=== PATIENT | male | born 1950 | race Caucasian/White ===

== ENCOUNTER 2017-12-24 00:57 | Inpatient (IN) | payer OTHER ==
[~2017-12-24] VITALS: Ht 170.2 cm; Wt 107.0 kg
[2017-12-24] VITALS (7 sets, daily range): BP systolic 107–190; BP diastolic 59–104
[~2017-12-24 00:57] MED LIST: AMOXICILLIN875 MG PO; ASPIRIN325 PO; CLARITIN10 MG PO; CRESTOR10 MG PO; FLOXIN OTI0.3 %/5 M1 OT; Guaifenesin PO; LISINOPRIL10 MG PO; LOPRESSOR50 PO; PRILOSEC 20 MG20 MG PO; PROVENTIL HFA6.7 G1 INH; SINGULAIR 10 MG10 M1 PO
[2017-12-24 01:31] LABS: HEMATOCRIT 41.2 % (42.0-52.0); HEMOGLOBIN 13.8 gm/dL (14.0-18.0); MCH 29.8 pg (26.0-34.0); MCHC 33.4 g/dL (28.0-37.0); MCV 89.2 fL (80.0-100.0); NUCLEATED RBCS 0 /100WBC; PLATELET COUNT* 226 thou/uL (150-400); RBC 4.62 mil/uL (4.50-6.00); RDW-CV 14.1 % (10.5-14.5); WBC 11.8 thou/uL (4.0-11.0)
[2017-12-24 01:46] LABS: ANION GAP 6 mmol/L (7-16); BUN 5 mg/dL (7-18); CALCIUM 9.3 mg/dL (8.5-10.1); CHLORIDE 103 mmol/L (98-107); CO2 33 mmol/L (21-32); GLUCOSE 104 mg/dL (70-99); POTASSIUM 4.3 mmol/L (3.5-5.1); SODIUM 142 mmol/L (136-145)
[2017-12-24 01:53] LABS: ALBUMIN 3.8 g/dL (3.4-5.0); ALKALINE PHOSPHATASE 82 U/L (46-116); NT-PRO BRAIN NAT PEPTIDE 318 pg/mL (<300); SGOT 19 U/L (15-37); SGPT 26 U/L (30-65); TOTAL BILIRUBIN 0.5 mg/dL (<0.1-1.0); TOTAL PROTEIN 7.7 g/dL (6.4-8.2); TROPONIN-I LEVEL <0.06 ng/mL (<0.06)
[2017-12-24 01:57] LABS: INFLUENZA A ANTIGEN None Detected (None Detect); INFLUENZA B ANTIGEN None Detected (None Detect)
[2017-12-24 02:28] LABS: ABSOLUTE BASOPHILS 0.1 thou/uL (0.0-0.2); ABSOLUTE EOSINOPHILS 1.7 thou/uL (0.0-0.7); ABSOLUTE LYMPHOCYTES 1.4 thou/uL (0.8-5.3); ABSOLUTE MONOCYTES 0.9 thou/uL (0.0-1.2); ABSOLUTE NEUTROPHILS 7.7 thou/uL (1.6-8.1); PLATELET ESTIMATE ADEQUATE; TOXIC GRANULATION 1+
[2017-12-24 04:16] LABS: HCO3 30.7 mmol/L (22.0-26.0); pH 7.369 (7.340-7.450)
[2017-12-24 04:17] LABS: PCO2 54.5 mmHg (35.0-45.0)
--- NOTE | 2017-12-24 07:19 | NUR ---
RECEIVED REPORT FROM ER NURSE VIOLA AT 0450. PT ARRIVED TO UNIT AT 0510 VIA GURNEY. PT AAOX4, ORIENTED TO ROOM AND CALL LIGHT, ON 6L O2 VIA NC. DENIES PAIN, NO CONCERNS VOICED. CALL LIGHT WITHIN REACH.
--- NOTE | 2017-12-24 16:21 | NUR ---
CM ATTEMPTED TO SPEAK TO THE PATIENT TO DISCUSS HOME SITUATION AND DISCHARGE PLANNING NEEDS. PATIENT WITH RT RECIEVING BREATHING TREATMENT AT THIS TIME. CM WILL ATTEPMET TO SEE PATIENT AT A LATER TIME. CM WILL REMAIN AVAILABLE TO ASSIST AND FOLLOW NEEDED.
[2017-12-24] MEDS ORDERED: TUMS PO (17:22)
--- NOTE | 2017-12-24 17:22 | 2DMMODE ---
[place] [address] 2 D/M-MODE ECHOCARDIOGRAM Name: JOSE F WYMAN SR Room: [address] IN [facility]#: [id number] Admission: 12/24/17 Attend Phys: Radha Alfred Discharge: Date of : 46 Date of Service: 12/24/17 1722 Report #: [id number] THIS REPORT FOR: //name// APPROVED REPORT Study performed: 12/24/2017 15:09:50 EXAM: Comprehensive 2D, Doppler, and color-flow Echocardiogram Patient Location: In-Patient Room #: [facility] Status: routine BSA: 2.17 HR: 95 bpm BP: 164/73 mmHg Rhythm: NSR Other Information Study Quality: Good Indications Dyspnea 2D Dimensions LVEF(%): 61.81 (>50%) IVSd: 13.03 (7-11mm) LVOT Diam: 22.07 (18-24mm) LVDd: 37.53 mm PWd: 12.46 (7-11mm) Ascending Ao: 35.64 (22-36mm) LVDs: 25.29 (25-40mm) Aortic Root: 33.66 mm Ramirez's LVEF: 61.81 % Volumes Left Atrial Volume (Systole) LA ESV Index: 21.90 mL/m2 Aortic Valve AoV Peak Basil.: 3.27 m/s AO Peak Gr.: 42.75 mmHg LVOT Max P.74 mmHg AO Mean Gr.: 26.32 mmHg LVOT Mean P.21 mmHg LVOT Max V: 1.30 m/s AO V2 VTI: 59.83 cm LVOT Mean V: 0.98 m/s RADHA (VTI): 1.57 cm2 LVOT V1 VTI: 24.49 cm Mitral Valve E/A Ratio: 0.68 [place] [address] 2 D/M-MODE ECHOCARDIOGRAM Name: JOSE F WYMAN SR Room: [address] IN [facility]#: [id number] Admission: 12/24/17 Attend Phys: Radha Alfred Discharge: Date of : 46 Date of Service: 12/24/17 1722 Report #: [id number] MV Decel. Time: 206.74 ms MV E Max Basil.: 0.66 m/s MV PHT: 59.96 ms MVA (PHT): 3.67 cm2 Pulmonary Valve PV Peak Basil.: 1.47 m/s PV Peak Gr.: 8.68 mmHg Left Ventricle The left ventricle is normal size. There is normal LV segmental wall motion. Mild concentric left ventricular hypertrophy. Left ventricular function is vigorous. LVEF is >70%. Grade I - abnormal relaxation pattern. Right Ventricle The right ventricle is normal size. The right ventricular systolic function is normal. Atria Left atrium is mildly dilated. The right atrium size is normal. Aortic Valve The Aortic valve is sclerotic. No aortic regurgitation is present. Moderate aortic stenosis. Mitral Valve The mitral valve is normal in structure. Trace mitral regurgitation. No evidence of mitral valve stenosis. Tricuspid Valve The tricuspid valve is normal in structure. Trace tricuspid regurgitation. Pulmonic Valve The pulmonary valve is normal in structure. There is no pulmonic valvular regurgitation. Great Vessels The aortic root is normal in size. IVC is normal in size and collapses with >50% inspiration Pericardium There is no pericardial effusion. <Conclusion> [place] [address] 2 D/M-MODE ECHOCARDIOGRAM Name: JOSE F WYMAN SR Room: [address]#: [id number] Admission: 12/24/17 Attend Phys: Radha Alfred Discharge: Date of : 46 Date of Service: 12/24/17 1722 Report #: [id number] The left ventricle is normal size. Mild concentric left ventricular hypertrophy. Left ventricular function is vigorous. LVEF is >70%. Grade I - abnormal relaxation pattern. Left atrium is mildly dilated. The Aortic valve is sclerotic. Moderate aortic stenosis. Trace mitral regurgitation. Trace tricuspid regurgitation. <ELECTRONICALLY SIGNED> By: Jose F Zamarripa MD, FACC 12/24/171721 21 21 Jose F Zamarripa MD, FACC /INF
--- NOTE | 2017-12-24 17:22 | NUR ---
PT UP IN ROOM WITH STEADY GAIT. PT ON O2@4L NC. O2 SATS IN UPPER 90S. PT REPORTS SOA WITH EXERTION. SOA IMPROVED WITH BREATHING TREATMENTS. NSR/STACH ON MONITOR
--- NOTE | 2017-12-24 17:48 | EKG ---
[place] [address] ELECTROCARDIOGRAM REPORT Name: ALMA ROSA WYMAN SR Room: [address] ADM IN .R.#: [id number] Admission: 12/24/17 Attend Phys: Tim Zhang Discharge: Date of : 46 Report #: [id number] THIS REPORT FOR: //name// [facility] ED Test Date: 2017-12-24 Test Time: 01:08:56 Pat Name: ALMA ROSA JONTOM Department: Room: [facility] Gender: M Detention Deputy: WINSOME Hidalgo : 1950 Requested By: Crystal Leonard Order Number: [id number] MD: Maycol Alexandre Measurements Intervals [place] Rate: 79 P: 9 [place]: 170 QRS: -20 QRSD: 91 T: 27 QT: 370 QTc: 425 Interpretive Statements Sinus rhythm Supraventricular bigeminy Borderline left axis deviation Low voltage, extremity leads Compared to ECG 01/03/2014 13:03:24 Low QRS voltage now present Ventricular premature complex(es) no longer present Electronically Signed On 12-24-2017 17:48:13 CDT by Maycol Alexandre [email or web address] <ELECTRONICALLY SIGNED> By: Maycol Alexandre MD, [facility] 12/24/17 1748 7 7 Maycol Alexandre MD, [facility] /EPI
[2017-12-25] VITALS (9 sets, daily range): BP systolic 132–147; BP diastolic 60–74
--- NOTE | 2017-12-25 05:37 | NUR ---
ASSUMED CARE OF PT AT 1930, NURSING ASSESSMENT COMPLETED AT START OF SHIFT, PT VOICED NO CONCERNS, PT TRACING SINUS RHYTHM WTH PVCS, DENIES PAIN THIS SHIFT, HOURLY ROUNDING COMPLETED, CALL LIGHT WITHIN REACH.
--- NOTE | 2017-12-25 09:00 | NUR ---
VSS, ASSUMED CARE IN THE AM ASSESSMENT PERFORMED AND CHARTED, FALL PRECAUTIONS IN PLACE, PT IS A&O4 AND IS UP AD [place] AND DENIES ANY PAIN, PT GOAL IS TO IMPROVE BREATHING AND WALK THE UNIT, PT IS ON 2.5 L NC AND IS TRACING ST/ST/TYPE 2 ON THE MONITOR, WILL FOLLOW WITH PLAN OF CARE,
--- NOTE | 2017-12-25 18:38 | NUR ---
VSS, PT IS PROGRESSING TOWARDS GOAL, PT IS A&O4 AND UP AD [place] AND IS ON 2L NC AD IS TRACING TYPE 2 ON THE MONITOR, PT HAS BEEN WALKING THE UNIT AND IS SOMETIME AT BEDSIDE ON THE GROUND PT STAES IT HELPS IMPROVE BREATHING, PT GOAL IS TO D/C TO HOME SOON AND HIS BREATHING HAS IMPROVEED AND IS ON 2L NC, HOURLY ROUNDS COMPLETED AND WILL FOLLOW WITH PLAN OF CARE.
[2017-12-26 03:49] VITALS: BP 116/58
--- NOTE | 2017-12-26 03:50 | NUR ---
END SHIFT: PT RESTED WELL. NO COMPLAINTS. NO PAIN. REMAINS ON 2L NC. PT IS SLOW TO WEAN OFF THE O2, SATS WILL DROP AND PT WILL DEVELOP SOA ON O2 <2L. PRODUCTIVE COUGH STILL NOTED. SA VS. SR WITH PAC'S/PVC'S ON MONITOR. ASSESSMENT UNCHANGED, VSS. SAFETY PRECAUTIONS IN PLACE. CALL LIGHT IN REACH. PERFORMED HOURLY ROUNDING, WILL CONT TO MONITOR.
[2017-12-26 05:23] LABS: HEMATOCRIT 40.4 % (42.0-52.0); HEMOGLOBIN 13.2 gm/dL (14.0-18.0); MCH 29.4 pg (26.0-34.0); MCHC 32.7 g/dL (28.0-37.0); MCV 89.9 fL (80.0-100.0); MPV 9.7 fl. (7.2-11.1); RBC 4.49 mil/uL (4.50-6.00); RDW-CV 14.1 % (10.5-14.5); WBC 18.5 thou/uL (4.0-11.0)
[2017-12-26 06:35] LABS: CALCIUM 10.1 mg/dL (8.5-10.1); CREATININE 1.1 mg/dL (0.6-1.3); POTASSIUM 4.6 mmol/L (3.5-5.1)
[2017-12-26 08:00] VITALS: BP 119/55
[2017-12-26 12:16] VITALS: BP 121/61
[2017-12-26 15:23] VITALS: BP 120/59
--- NOTE | 2017-12-26 16:45 | NUR ---
ASSUMED CARE OF PATIENT AFTER TRANSFER OF CARE AT 1300. AGREE WITH PREVIOUS NURSES ASSESSMENT. PATIENT HAS REMAINED ALERT AND ORIENTED X4. VSS ON 2 LITERS 02 VIA NASAL CANULA. PATIENT IS SR WITH PAC/PVC ON THE MONITOR. PATIENT WALKS THE UNTI WITH PORTABLE 02 AND AMBULATES VERY WELL. NO COMPLAINTS OF NAUSEA OR PAIN THIS AFTERNOON. PATIENT IS COMFORTABLY ON KNEES AT THE SIDE OF THE BED, RESTING OVER THE BED, THIS HELPS HIM BREATHE MORE COMFORTABLY. CALL LIGHT IS WITHIN REACH AND PATIENT CALL APPROPRIATELY. HOURLY ROUNDS MAINTAINED. NURSING WILL CONTINUE TO MONITOR.
[2017-12-26 20:38] VITALS: BP 111/52
[2017-12-27] VITALS: BP 119/46
[2017-12-27 04:00] VITALS: BP 135/55
[2017-12-27 05:07] LABS: ABSOLUTE EOSINOPHILS 0.1 thou/uL (0.0-0.7); ABSOLUTE LYMPHOCYTES 2.7 thou/uL (0.8-5.3); ABSOLUTE MONOCYTES 1.7 thou/uL (0.0-1.2); ABSOLUTE NEUTROPHILS 10.7 thou/uL (1.6-8.1); BASOPHILS 0.1 %; EOSINOPHILS 0.5 %; HEMOGLOBIN 13.2 gm/dL (14.0-18.0); LYMPHOCYTES 17.6 %; MCH 29.2 pg (26.0-34.0); MCV 88.4 fL (80.0-100.0); MONOCYTES 11.1 %; MPV 9.3 fl. (7.2-11.1); NUCLEATED RBCS 0 /100WBC; PLATELET COUNT* 256 thou/uL (150-400); POLYS 70.7 %; RBC 4.52 mil/uL (4.50-6.00); RDW-CV 13.9 % (10.5-14.5); WBC 15.1 thou/uL (4.0-11.0)
--- NOTE | 2017-12-27 06:28 | NUR ---
PT IS ABLE TO COMMUNICATE HIS NEEDS TO STAFF EFFECTIVELY. HE HAS DENIED THE NEED FOR PAIN MEDICATION UP TO THIS TIME. PT HAS BEEN VERY STEADY WHEN AMBULATING UP TO THIS TIME.
[2017-12-27 06:44] LABS: ALBUMIN 3.3 g/dL (3.4-5.0); CALCIUM 9.3 mg/dL (8.5-10.1); CREATININE 1.2 mg/dL (0.6-1.3); POTASSIUM 3.6 mmol/L (3.5-5.1); TOTAL BILIRUBIN 0.3 mg/dL (<0.1-1.0); TOTAL PROTEIN 6.8 g/dL (6.4-8.2)
[2017-12-27 08:00] VITALS: BP 105/53
[2017-12-27 12:23] VITALS: BP 103/55
[2017-12-27 17:00] VITALS: BP 123/56
--- NOTE | 2017-12-27 18:35 | NUR ---
PATIET RESTING IN CHAIR IN ROOM. UP AD GARDENIA WITH SUPPLEMENTAL OXYGEN. VITAL SIGNS STABLE AND PATIENT IN NOAPPARENT SIGNS OF DISTRESS. NON PRODUCTIVE COUGH, DIMINISHED LUNG SOUNDS. HOURLY ROUNDING COMPLETED FOR PATIENT SAFETY AND PAITENT SLOWLY PROGRESSING TOWARDS GOALS. SR TO ST ON MONITOR.
[2017-12-27 20:00] VITALS: BP 108/53
[2017-12-28] VITALS: BP 120/62
--- NOTE | 2017-12-28 03:55 | NUR ---
ASSUMED CARE OF PT AT 1930, NURSING ASSESSMENT COMPLETED AT START OF SHIFT, PT VOICED NO CONCERNS, TRACING BIGEMINY/SINUS RHYTHM WITH PACS THIS SHIFT, PT DENIES PAIN, HOURLY ROUNDING COMPLETED, CALL LIGHT WITHIN REACH. PT SLOWLY PROGRESSING TOWARDS GOALS.
[2017-12-28 04:00] VITALS: BP 148/75
[2017-12-28 05:30] LABS: HEMATOCRIT 36.8 % (42.0-52.0); HEMOGLOBIN 12.4 gm/dL (14.0-18.0); MCH 30.2 pg (26.0-34.0); MCHC 33.7 g/dL (28.0-37.0); MCV 89.6 fL (80.0-100.0); MPV 9.7 fl. (7.2-11.1); NUCLEATED RBCS 0 /100WBC; PLATELET COUNT* 199 thou/uL (150-400); RBC 4.11 mil/uL (4.50-6.00); WBC 12.5 thou/uL (4.0-11.0)
[2017-12-28 05:43] LABS: CREATININE 1.1 mg/dL (0.6-1.3); POTASSIUM 3.8 mmol/L (3.5-5.1)
[2017-12-28 06:07] LABS: ABSOLUTE LYMPHOCYTES 1.9 thou/uL (0.8-5.3); ABSOLUTE MONOCYTES 1.1 thou/uL (0.0-1.2); ABSOLUTE NEUTROPHILS 9.5 thou/uL (1.6-8.1)
[2017-12-28 06:09] LABS: ANISOCYTOSIS 1+; PLATELET ESTIMATE ADEQUATE; POIKILOCYTOSIS 1+
[2017-12-28 08:00] VITALS: BP 110/66
[2017-12-28 11:37] VITALS: BP 136/67
--- NOTE | 2017-12-28 14:41 | NUR ---
Pt continues to require o2. Ex ox completed, Pt will need o2 at dc, anticipate dc tomorrow.
--- NOTE | 2017-12-28 18:42 | NUR ---
PATIENT RESTING IN ROOM. UP AD GARDENIA WITH SUPPLEMENTAL OXYGEN OF 2-4 LITERS. IV LASIX FOR ADDITIONAL DIURESIS TODAY WITH DISCHARGE ANTICIPATED FOR TOMORROW. VITAL SIGNS STABLE AND PATIETN LUNG SOUNDS CLEAR AND DIMINISHED. HOURLY ROUNDING COMPLETED FOR PATIENT SAFETY AND PATIENT PROGRESSING TOWARDS GOALS.
[2017-12-28 19:46] VITALS: BP 115/48
--- NOTE | 2017-12-29 03:57 | NUR ---
ASSUMED CARE OF PT AT 1930, NURSING ASSESSMENT COMPLETED AT START OF SHIFT. PT DENIES PAIN, TRACING SR WITH PACS THIS SHIFT. ONGOING SLEEP STUDY THIS SHIFT, PT AWAKE THROUGHOUT THE NIGHT, CALL LIGHT WITHIN REACH. PT ON 2L NC AT THIS TIME
[2017-12-29 07:09] LABS: HEMATOCRIT 37.8 % (42.0-52.0); HEMOGLOBIN 12.8 gm/dL (14.0-18.0); MCH 29.9 pg (26.0-34.0); MCHC 33.7 g/dL (28.0-37.0); MCV 88.6 fL (80.0-100.0); MPV 8.7 fl. (7.2-11.1); RBC 4.27 mil/uL (4.50-6.00); RDW-CV 13.9 % (10.5-14.5); WBC 14.5 thou/uL (4.0-11.0)
[2017-12-29 07:28] LABS: POTASSIUM 3.9 mmol/L (3.5-5.1)
[2017-12-29 08:00] VITALS: BP 113/71
[2017-12-29] MEDS ORDERED: LEVAQUIN 750 M750 MG PO (10:00)
[2017-12-29] MEDS ORDERED: PREDNISONE 20 M20 M1 PO (10:02)
[2017-12-29 10:38] VITALS: BP 113/71
[2017-12-29 10:41] VITALS: BP 113/71
--- NOTE | 2017-12-29 10:48 | NUR ---
Pt discharging to home today. Argelia Rodgers delivered portable tank to Pt's room.
--- NOTE | 2017-12-29 11:41 | NUR ---
ORDER RECEIVED TO DISCHARGE PATIENT HOME TO SELF CARE. ORDER RECEIVED FOR SUPLEMENTAL OXYGEN FOR HOME USE AND PORTABLE SUPPLY DELIVERED TO HOSPITAL FOR PATIETN USE. MED REC, MECAITION EDUCATION, NEW PRESCRIPTION, AND NEED FOR FOLLOW UP APPOINTMETNS COVERED AND STATED UNDERSTOOD BY PATIENT. HOURLY ROUNDING COMPLETED FOR PATIENT SAFETY AND PATINET HAS PROGRESSED TOWARDS GOALS. IV REMOVED AND TELEMTRY DC'D. PAITNET AWAITING TRANSPORTATION TO HOME
[2018-01-11] MEDS ORDERED: LIPITOR80 MG PO (10:13)
[2018-01-11] MEDS ORDERED: FLONASE 0.05%50 MCG NASAL (10:15)
[2018-01-11] MEDS ORDERED: ALLFEN400 MG PO (10:16)
[2018-01-11] MEDS ORDERED: LISINOPRIL20 MG PO (10:18)
[2018-01-11] MEDS ORDERED: CLARITIN10 MG PO (10:18)
[2018-01-11] MEDS ORDERED: IPRATROPIUM BRO30 ML NASAL (10:18)
[2018-01-11] MEDS ORDERED: ASMANEX220 MC2 INH (10:19)
[2018-01-11] MEDS ORDERED: NAPROSYN500 MG PO (10:19)
[2018-01-12] MEDS ORDERED: UNICOMPLEX M TA1 TA1 PO (15:30)
[2018-01-12] MEDS ORDERED: CINNAMON ALPHA1 EACH PO (15:30)
[2018-01-13] MEDS ORDERED: ASPIR 8181 M1 PO (12:22)
[2018-01-13] MEDS ORDERED: BRILINTA90 MG PO (12:40)
== END 2017-12-29 13:20 | disposition home or self-care (01) | DRG 193 ==
LOC: M.ERS 00:57 → M.TBA-ER 03:56 → M.2W 03:56
PROVIDERS: Emergency Medicine; Internal Medicine; ADMIT Internal Medicine
DX: J18.9 Pneumonia, unspecified organism (principal); J96.01 Acute respiratory failure with hypoxia; J45.901 Unspecified asthma with (acute) exacerbation; R65.10 Systemic inflammatory response syndrome (SIRS) of non-infectious origin without acute organ dysfunction; J44.1 Chronic obstructive pulmonary disease with (acute) exacerbation; J44.0 Chronic obstructive pulmonary disease with (acute) lower respiratory infection; I35.0 Nonrheumatic aortic (valve) stenosis; I10 Essential (primary) hypertension; E78.00 Pure hypercholesterolemia, unspecified; G47.33 Obstructive sleep apnea (adult) (pediatric); I25.10 Atherosclerotic heart disease of native coronary artery without angina pectoris; E78.5 Hyperlipidemia, unspecified; Z79.899 Other long term (current) drug therapy

== ENCOUNTER → 2018-05-17 | Outpatient (CLI) | payer OTHER ==
[~2018-05-17] MED LIST changes: +ALLFEN400 MG PO; +ASMANEX220 MC2 INH; +ASPIR 8181 M1 PO; +BRILINTA90 MG PO; +CINNAMON ALPHA1 EACH PO; +FLONASE 0.05%50 MCG NASAL; +IPRATROPIUM BRO30 ML NASAL; +LEVAQUIN 750 M750 MG PO; +LIPITOR80 MG PO; +LISINOPRIL20 MG PO; +NAPROSYN500 MG PO; +PREDNISONE 20 M20 M1 PO; +TUMS PO; +UNICOMPLEX M TA1 TA1 PO
--- NOTE | 2018-05-17 16:50 | 2DMMODE ---
[place] [address] 2 D/M-MODE ECHOCARDIOGRAM Name: JOSE F WYMAN Room: [facility]#: [id number] Admission: 05/17/18 Attend Phys: Tim Booker Discharge: Date of : 46 Date of Service: 05/17/18 1649 Report #: [id number] THIS REPORT FOR: //name// APPROVED REPORT Study performed: 05/17/2018 14:40:25 EXAM: Comprehensive 2D, Doppler, and color-flow Echocardiogram Patient Location: Out-Patient Status: routine BSA: 2.20 HR: 61 bpm BP: 164/73 mmHg Other Information Study Quality: Limited Technically limited study due to poor endocardial definition. Indications CAD Hypertension/HDD 2D Dimensions LVEF(%): 67.87 (>50%) IVSd: 14.64 (7-11mm) LVOT Diam: 20.14 (18-24mm) LVDd: 53.34 mm PWd: 14.23 (7-11mm) Ascending Ao: 32.88 (22-36mm) LVDs: 33.00 (25-40mm) Aortic Root: 30.64 mm Ramirez's LVEF: 67.87 % Volumes Left Atrial Volume (Systole) LA ESV Index: 19.80 mL/m2 Aortic Valve AoV Peak Basil.: 2.54 m/s AO Peak Gr.: 25.85 mmHg LVOT Max P.17 mmHg AO Mean Gr.: 16.39 mmHg LVOT Mean P.20 mmHg LVOT Max V: 0.74 m/s AO V2 VTI: 61.49 cm LVOT Mean V: 0.51 m/s RADHA (VTI): 0.96 cm2 LVOT V1 VTI: 18.54 [place] [address] 2 D/M-MODE ECHOCARDIOGRAM Name: JOSE F WYMAN Room: [facility]#: [id number] Admission: 05/17/18 Attend Phys: Tim Booker Discharge: Date of : 46 Date of Service: 05/17/18 1649 Report #: [id number] Mitral Valve E/A Ratio: 0.95 MV Decel. Time: 190.62 ms MV E Max Basil.: 0.77 m/s MV PHT: 55.28 ms MVA (PHT): 3.98 cm2 TDI E/Lateral E': 8.56 E/Medial E': 11.00 Medial E' Basil.: 0.07 m/s Lateral E' Basil.: 0.09 m/s Pulmonary Valve PV Peak Basil.: 1.00 m/s PV Peak Gr.: 4.02 mmHg Tricuspid Valve RAP Estimate: 5.00 mmHg TR Peak Gr.: 24.30 mmHg RVSP: 29.30 mmHg PA Pressure: 29.30 mmHg Left Ventricle The left ventricle is normal size. There is normal LV segmental wall motion. Mild concentric left ventricular hypertrophy. Left ventricular systolic function is normal. LVEF is 50-55%. Grade I - abnormal relaxation pattern. Right Ventricle The right ventricle is normal size. The right ventricular systolic function is normal. Atria The left atrium size is normal. The right atrium size is normal. Aortic Valve Aortic valve is calcified. Trace aortic regurgitation. Moderate to severe aortic stenosis. Mitral Valve The mitral valve is normal in structure. Mild mitral regurgitation. No evidence of mitral valve stenosis. Tricuspid Valve The tricuspid valve is normal in structure. Mild tricuspid regurgitation. The RVSP is 30-35 [place] [address] 2 D/M-MODE ECHOCARDIOGRAM Name: JOSE F WYMAN Room: [facility]#: [id number] Admission: 05/17/18 Attend Phys: Tim Booker Discharge: Date of : 46 Date of Service: 05/17/18 1649 Report #: [id number] Pulmonic Valve The pulmonary valve is normal in structure. There is no pulmonic valvular regurgitation. Great Vessels The aortic root is normal in size. IVC is not well visualized. Pericardium There is no pericardial effusion. <Conclusion> The left ventricle is normal size. Mild concentric left ventricular hypertrophy. Left ventricular systolic function is normal. LVEF is 50-55%. Grade I - abnormal relaxation pattern. Aortic valve is calcified. Moderate to severe aortic stenosis. Mild mitral regurgitation. Mild tricuspid regurgitation. The RVSP is 30-35 mmHg. <ELECTRONICALLY SIGNED> By: Jose F Zamarripa MD, FACC 05/17/189 48 48 Jose F Zamarripa MD, FACC /INF
== END ==
LOC: M.CRD 14:00
DX: I25.810 Atherosclerosis of coronary artery bypass graft(s) without angina pectoris (principal); I08.3 Combined rheumatic disorders of mitral, aortic and tricuspid valves; I10 Essential (primary) hypertension; Z95.1 Presence of aortocoronary bypass graft

== ENCOUNTER 2019-03-27 13:49 | Emergency (ER) | payer OTHER ==
[~2019-03-27] VITALS: Ht 170.2 cm; Wt 113.4 kg
[2019-03-27] MEDS ORDERED: PLAVIX 75 MG TA75 M1 PO (14:03)
[2019-03-27] MEDS ORDERED: ZPAK PO (14:08)
[2019-03-27] MEDS ORDERED: PREDNISONE 20 M20 M1 PO (14:08)
== END 2019-03-27 14:20 | disposition home or self-care (01) ==
LOC: M.ERS 13:49
DX: J45.901 Unspecified asthma with (acute) exacerbation (principal); E78.00 Pure hypercholesterolemia, unspecified; I10 Essential (primary) hypertension; J45.909 Unspecified asthma, uncomplicated; Z88.6 Allergy status to analgesic agent

== ENCOUNTER 2019-07-13 13:13 | Emergency (ER) | payer OTHER ==
[~2019-07-13] VITALS: Ht 170.2 cm; Wt 106.6 kg
[~2019-07-13 13:13] MED LIST changes: +PLAVIX 75 MG TA75 M1 PO; +ZPAK PO
[2019-07-13] MEDS ORDERED: BRILINTA90 MG PO (13:27)
[2019-07-13] MEDS ORDERED: ASA81BEC PO (13:27)
[2019-07-13] MEDS ORDERED: ZPAK PO (13:37)
[2019-07-13] MEDS ORDERED: PREDNISONE 20 M20 MG PO (13:40)
[2019-07-13 13:50] VITALS: BP 146/68
== END 2019-07-13 13:54 | disposition home or self-care (01) ==
LOC: M.ERS 13:13
DX: J20.9 Acute bronchitis, unspecified (principal); I10 Essential (primary) hypertension; E78.00 Pure hypercholesterolemia, unspecified; J45.909 Unspecified asthma, uncomplicated; Z95.2 Presence of prosthetic heart valve; Z88.6 Allergy status to analgesic agent

== ENCOUNTER 2019-08-24 14:51 | Emergency (ER) | payer OTHER ==
[~2019-08-24] VITALS: Ht 170.2 cm; Wt 106.6 kg
[~2019-08-24 14:51] MED LIST changes: +ASA81BEC PO; +PREDNISONE 20 M20 MG PO
[2019-08-24] MEDS ORDERED: ZESTRIL10 MG PO (15:03)
[2019-08-24] MEDS ORDERED: TYLENOL WITH CO1 TA1 PO (16:42)
[2019-08-24 16:45] VITALS: BP 124/77
== END 2019-08-24 16:45 | disposition home or self-care (01) ==
LOC: M.ERS 14:51
DX: M25.561 Pain in right knee (principal); M25.461 Effusion, right knee; I10 Essential (primary) hypertension; E78.00 Pure hypercholesterolemia, unspecified; J45.909 Unspecified asthma, uncomplicated; Z95.5 Presence of coronary angioplasty implant and graft; Z98.52 Vasectomy status; Z88.6 Allergy status to analgesic agent

== ENCOUNTER → 2019-10-11 | Outpatient (CLI) | payer OTHER ==
[~2019-10-11] MED LIST changes: +TYLENOL WITH CO1 TA1 PO; +ZESTRIL10 MG PO
--- NOTE | 2019-10-11 15:06 | 2DMMODE ---
[place] [address] 2 D/M-MODE ECHOCARDIOGRAM Name: ALMA ROSA WYMAN Room: [facility]#: [id number] Admission: 10/11/19 Attend Phys: Tim Booker Discharge: Date of : 46 Date of Service: 10/11/19 1506 Report #: [id number] THIS REPORT FOR: cc: Celena Warren PA-C, Erin PA-C Blick, David [facility] ~ THIS REPORT FOR: //name// APPROVED REPORT Study performed: 10/11/2019 12:59:06 EXAM: Comprehensive 2D, Doppler, and color-flow Echocardiogram Patient Location: Out-Patient BSA: 2.17 HR: 76 bpm BP: 160/70 mmHg Other Information Study Quality: Fair Indications Aortic Valve Disease CAD 2D Dimensions IVSd: 11.77 (7-11mm) LVOT Diam: 20.33 (18-24mm) LVDd: 50.19 mm PWd: 11.48 (7-11mm) Ascending Ao: 31.30 (22-36mm) LVDs: 33.87 (25-40mm) Aortic Root: 29.85 mm Volumes Left Atrial Volume (Systole) LA ESV Index: 27.00 mL/m2 Aortic Valve AoV Peak Basil.: 2.66 m/s AO Peak Gr.: 28.40 mmHg LVOT Max P.27 mmHg AO Mean Gr.: 17.32 mmHg LVOT Mean P.86 mmHg LVOT Max V: 0.90 m/s AO V2 VTI: 60.24 cm LVOT Mean V: 0.64 m/s RADHA (VTI): 1.23 cm2 LVOT V1 VTI: 22.86 [place] [address] 2 D/M-MODE ECHOCARDIOGRAM Name: ALMA ROSA WYMAN Room: [facility]#: [id number] Admission: 10/11/19 Attend Phys: Tim Booker Discharge: Date of : 46 Date of Service: 10/11/19 1506 Report #: [id number] Mitral Valve E/A Ratio: 0.83 MV Decel. Time: 203.05 ms MV E Max Basil.: 0.77 m/s MV PHT: 58.88 ms MVA (PHT): 3.74 cm2 TDI E/Lateral E': 9.63 E/Medial E': 8.56 Medial E' Basil.: 0.09 m/s Lateral E' Basil.: 0.08 m/s Pulmonary Valve PV Peak Basil.: 0.98 m/s PV Peak Gr.: 3.85 mmHg Tricuspid Valve RAP Estimate: 5.00 mmHg TR Peak Gr.: 14.73 mmHg RVSP: 19.73 mmHg PA Pressure: 19.73 mmHg Left Ventricle The left ventricle is normal size. There is normal LV segmental wall motion. Mild concentric left ventricular hypertrophy. Left ventricular systolic function is normal. The left ventricular ejection fraction is within the normal range. LVEF is 55-60%. Grade I - abnormal relaxation pattern. Right Ventricle The right ventricle is normal size. The right ventricular systolic function is normal. Atria The left atrium size is normal. The right atrium size is normal. Aortic Valve Aortic valve is mildly calcified. trace aortic regurgitation. Mild aortic stenosis. Mitral Valve The mitral valve is normal in structure. Mild mitral regurgitation. No evidence of mitral valve stenosis. Tricuspid Valve The tricuspid valve is normal in [place] [address] 2 D/M-MODE ECHOCARDIOGRAM Name: ALMA ROSA WYMAN Room: [facility]#: [id number] Admission: 10/11/19 Attend Phys: Tim Booker Discharge: Date of : 46 Date of Service: 10/11/19 1506 Report #: [id number] regurgitation. Pulmonic Valve Pulmonic valve is not well visualized. There is no pulmonic valvular regurgitation. Great Vessels The aortic root is normal in size. IVC is normal in size and collapses >50% with inspiration. Pericardium There is no pericardial effusion. <Conclusion> LVEF is 55-60%. Mild concentric left ventricular hypertrophy. Mild aortic stenosis. Mild mitral regurgitation. <ELECTRONICALLY SIGNED> By: Gabriele Carson MD, FACC 10/11/19 1506 1506 1506 Gabriele Carson MD, FAC /INF
== END ==
LOC: M.CRD 13:00
DX: I08.0 Rheumatic disorders of both mitral and aortic valves (principal)

== ENCOUNTER 2020-05-01 23:55 | Emergency (ER) | payer OTHER ==
[~2020-05-01] VITALS: Ht 170.2 cm; Wt 109.8 kg
[2020-05-02] MEDS ORDERED: IPRAT-ALBUT 0.5-3 ML INH (02:48)
[2020-05-02 03:00] VITALS: BP 138/79
== END 2020-05-02 03:00 | disposition home or self-care (01) ==
LOC: M.ERS 23:55
DX: J45.901 Unspecified asthma with (acute) exacerbation (principal); I10 Essential (primary) hypertension; E78.00 Pure hypercholesterolemia, unspecified; Z95.5 Presence of coronary angioplasty implant and graft; Z88.6 Allergy status to analgesic agent

== ENCOUNTER 2020-06-18 03:04 | Emergency (ER) | payer OTHER ==
[~2020-06-18] VITALS: Ht 170.2 cm; Wt 109.8 kg
[~2020-06-18 03:04] MED LIST changes: +IPRAT-ALBUT 0.5-3 ML INH
[2020-06-18 04:15] LABS: HEMATOCRIT 39.1 % (42.0-52.0); HEMOGLOBIN 13.6 gm/dL (14.0-18.0); MCH 29.8 pg (26.0-34.0); MCHC 34.6 g/dL (28.0-37.0); MPV 8.3 fl. (7.2-11.1); NUCLEATED RBCS 0 /100WBC; PLATELET COUNT* 250 thou/uL (150-400); RBC 4.55 mil/uL (4.50-6.00); RDW-CV 14.2 % (10.5-14.5); WBC 9.2 thou/uL (4.0-11.0)
[2020-06-18 04:31] LABS: CALCIUM 9.1 mg/dL (8.5-10.1); CREATININE 1.1 mg/dL (0.6-1.3); POTASSIUM 4.2 mmol/L (3.5-5.1)
[2020-06-18 04:37] LABS: PROTIME 10.5 Seconds (9.20-11.50)
[2020-06-18 04:46] LABS: ALBUMIN 4.1 g/dL (3.4-5.0); MAGNESIUM 1.9 mg/dL (1.8-2.4); TOTAL BILIRUBIN 0.5 mg/dL (<0.1-1.0); TOTAL PROTEIN 7.7 g/dL (6.4-8.2)
[2020-06-18] MEDS ORDERED: prednisone PO (05:01)
[2020-06-18 05:10] VITALS: BP 168/70
[2020-06-18 05:25] LABS: ABSOLUTE BASOPHILS 0.2 thou/uL (0.0-0.2); ABSOLUTE EOSINOPHILS 0.9 thou/uL (0.0-0.7); ABSOLUTE LYMPHOCYTES 1.7 thou/uL (0.8-5.3); ABSOLUTE NEUTROPHILS 5.3 thou/uL (1.6-8.1); ANISOCYTOSIS 1+; PLATELET ESTIMATE ADEQUATE; POIKILOCYTOSIS 1+
--- NOTE | 2020-06-18 18:28 | EKG ---
[place] [address] ELECTROCARDIOGRAM REPORT Name: JOSE F WYMAN Room: [facility]#: [id number] Admission: 06/18/20 Attend Phys: Discharge: 06/18/20 Date of : 46 Date of Service: 06/18/20 033 Report #: [id number] THIS REPORT FOR: //name// [facility] ED Test Date: 2020-06-18 Test Time: 03:32:24 Pat Name: JOSE F WYMAN Department: Room: Gender: Sensor Specialist: : 1950 Requested By: Crystal Leonard Order Number: [id number] MD: Jose F Zamarripa Measurements Intervals [place] Rate: 89 P: 3 NE: 179 QRS: -12 QRSD: 109 T: 34 QT: 337 QTc: 410 Interpretive Statements Sinus rhythm Supraventricular bigeminy Low voltage, extremity leads Compared to ECG 01/13/2018 03:16:59 No significant changes Electronically Signed On 06-18-2020 18:28:16 CDT by Jose F Zamarripa [email or web address] <ELECTRONICALLY SIGNED> By: Jose F Zamarripa MD, FACC 06/18/20 1828 0332 0332 Jose F Zamarripa MD, FACC /EPI
== END 2020-06-18 05:12 | disposition home or self-care (01) ==
LOC: M.ERS 03:04
PROVIDERS: Emergency Medicine
DX: J44.1 Chronic obstructive pulmonary disease with (acute) exacerbation (principal); Z20.828 Contact with and (suspected) exposure to other viral communicable diseases; R06.00 Dyspnea, unspecified; I10 Essential (primary) hypertension; E78.00 Pure hypercholesterolemia, unspecified; J45.909 Unspecified asthma, uncomplicated; Z79.899 Other long term (current) drug therapy; Z79.82 Long term (current) use of aspirin; Z88.6 Allergy status to analgesic agent

== ENCOUNTER 2020-07-17 20:37 | Emergency (ER) | payer OTHER ==
[~2020-07-17] VITALS: Ht 170.2 cm; Wt 105.2 kg
[~2020-07-17 20:37] MED LIST changes: +prednisone PO
[2020-07-17 21:20] LABS: HEMOGLOBIN 12.5 gm/dL (14.0-18.0); MCH 29.7 pg (26.0-34.0); MCHC 33.8 g/dL (28.0-37.0); MCV 87.7 fL (80.0-100.0); MPV 8.6 fl. (7.2-11.1); NUCLEATED RBCS 0 /100WBC; PLATELET COUNT* 207 thou/uL (150-400); RBC 4.22 mil/uL (4.50-6.00); RDW-CV 14.1 % (10.5-14.5); WBC 7.5 thou/uL (4.0-11.0)
[2020-07-17 21:24] LABS: CALCIUM 8.7 mg/dL (8.5-10.1); CREATININE 0.9 mg/dL (0.6-1.3); POTASSIUM 3.8 mmol/L (3.5-5.1)
[2020-07-17 21:25] LABS: INFLUENZA A ANTIGEN Negative (Negative); INFLUENZA B ANTIGEN Negative (Negative)
[2020-07-17 21:30] LABS: APTT 25.2 Seconds (25.0-31.3); PROTIME 10.4 Seconds (9.20-11.50)
[2020-07-17 21:35] LABS: ALBUMIN 3.6 g/dL (3.4-5.0); MAGNESIUM 1.9 mg/dL (1.8-2.4); TOTAL BILIRUBIN 0.3 mg/dL (<0.1-1.0)
[2020-07-17] MEDS ORDERED: PREDNISONE 10 M10 MG PO (22:48)
[2020-07-17 23:26] VITALS: BP 164/74
[2020-07-17 23:36] LABS: ABSOLUTE BASOPHILS 0.2 thou/uL (0.0-0.2); ABSOLUTE EOSINOPHILS 1.2 thou/uL (0.0-0.7); ABSOLUTE MONOCYTES 0.7 thou/uL (0.0-1.2); ABSOLUTE NEUTROPHILS 3.5 thou/uL (1.6-8.1); PLATELET ESTIMATE ADEQUATE
--- NOTE | 2020-07-18 10:51 | EKG ---
[place] [address] ELECTROCARDIOGRAM REPORT Name: ALMA ROSA WYMAN Room: [facility]#: [id number] Admission: 07/17/20 Attend Phys: Discharge: 07/17/20 Date of : 46 Date of Service: 07/17/202045 Report #: [id number] THIS REPORT FOR: //name// [facility] ED Test Date: 2020-07-17 Test Time: 20:46:31 Pat Name: ALMA ROSA WYMAN Department: Room: Gender: Electrotype Molder: : 1950 Requested By: Parul Moreno Order Number: [id number] MD: Maycol Alexandre Measurements Intervals [place] Rate: 94 P: 8 [place]: 161 QRS: -1 QRSD: 108 T: 32 QT: 354 QTc: 443 Interpretive Statements Sinus rhythm Supraventricular bigeminy Low voltage, extremity and precordial leads Consider anterior infarct Baseline wander in lead(s) I,aVR,V1 Compared to ECG 06/18/2020 03:32:24 Delayed R wave progression over the right precordium persists Electronically Signed On 07-18-2020 10:50:50 RESPIRATORY CLINICIAN by Maycol Alexandre [email or web address] <ELECTRONICALLY SIGNED> By: Maycol Alexandre MD, FACC 07/18/20 1050 45 45 Maycol Alexandre MD, FAC /EPI
== END 2020-07-17 23:27 | disposition home or self-care (01) ==
LOC: M.ERS 20:37
PROVIDERS: Nurse Practitioner Family
DX: J44.1 Chronic obstructive pulmonary disease with (acute) exacerbation (principal); Z20.828 Contact with and (suspected) exposure to other viral communicable diseases; I10 Essential (primary) hypertension; E78.00 Pure hypercholesterolemia, unspecified; J45.909 Unspecified asthma, uncomplicated; Z95.5 Presence of coronary angioplasty implant and graft; Z88.6 Allergy status to analgesic agent

== ENCOUNTER 2020-09-26 03:38 | Emergency (ER) | payer OTHER ==
[~2020-09-26] VITALS: Ht 170.2 cm; Wt 111.6 kg
[~2020-09-26 03:38] MED LIST changes: +PREDNISONE 10 M10 MG PO
[2020-09-26 04:13] LABS: HEMATOCRIT 37.6 % (42.0-52.0); HEMOGLOBIN 12.8 gm/dL (14.0-18.0); MCV 85.3 fL (80.0-100.0); MPV 8.2 fl. (7.2-11.1); NUCLEATED RBCS 0 /100WBC; PLATELET COUNT* 232 thou/uL (150-400); RBC 4.42 mil/uL (4.50-6.00); RDW-CV 14.5 % (10.5-14.5); WBC 11.8 thou/uL (4.0-11.0)
[2020-09-26 04:40] LABS: PROTIME 10.2 Seconds (9.20-11.50)
[2020-09-26 04:53] LABS: CALCIUM 8.8 mg/dL (8.5-10.1); POTASSIUM 4.3 mmol/L (3.5-5.1)
[2020-09-26 05:04] LABS: ALBUMIN 3.4 g/dL (3.4-5.0); TOTAL BILIRUBIN 0.4 mg/dL (<0.1-1.0); TOTAL PROTEIN 6.5 g/dL (6.4-8.2)
[2020-09-26 05:49] LABS: ABSOLUTE BASOPHILS 0.1 thou/uL (0.0-0.2); ABSOLUTE EOSINOPHILS 0.9 thou/uL (0.0-0.7); ABSOLUTE LYMPHOCYTES 2.6 thou/uL (0.8-5.3); ABSOLUTE MONOCYTES 0.5 thou/uL (0.0-1.2); ABSOLUTE NEUTROPHILS 7.7 thou/uL (1.6-8.1); ANISOCYTOSIS 1+; PLATELET ESTIMATE ADEQUATE; POIKILOCYTOSIS 1+
[2020-09-26 06:43] VITALS: BP 116/53
--- NOTE | 2020-09-26 10:04 | EKG ---
[place] [address] ELECTROCARDIOGRAM REPORT Name: ALMA ROSA WYMAN Room: [facility]#: [id number] Admission: 09/26/20 Attend Phys: Discharge: 09/26/20 Date of : 46 Date of Service: 09/26/20 034 Report #: [id number] THIS REPORT FOR: //name// [facility] ED Test Date: 2020-09-26 Test Time: 03:42:29 Pat Name: ALMA ROSA WYMAN Department: Room: Gender: Mandolin Repairer: : 1950 Requested By: Marlen Billings Order Number: [id number] MD: Gabriele Carson Measurements Intervals [place] Rate: 63 P: 20 CT: 179 QRS: -14 QRSD: 101 T: 17 QT: 377 QTc: 386 Interpretive Statements Sinus rhythm Supraventricular bigeminy Borderline low voltage, extremity leads Probable anteroseptal infarct, old Compared to ECG 07/17/2020 20:46:31 No significant changes Electronically Signed On 09-26-2020 10:04:32 EDUCATION INTERN by Gabriele Carson [email or web address] <ELECTRONICALLY SIGNED> By: Gabriele Carson MD, [facility] 09/26/20 1004 0342 0342 Gabriele Carson MD, [facility] /EPI
== END 2020-09-26 06:43 | disposition still patient (30) ==
LOC: M.ERS 03:38
PROVIDERS: Personal Emergency Response Attendant
DX: I25.119 Atherosclerotic heart disease of native coronary artery with unspecified angina pectoris (principal); R00.8 Other abnormalities of heart beat; Z20.828 Contact with and (suspected) exposure to other viral communicable diseases; I10 Essential (primary) hypertension; E78.00 Pure hypercholesterolemia, unspecified; J45.909 Unspecified asthma, uncomplicated; Z88.6 Allergy status to analgesic agent; Z95.5 Presence of coronary angioplasty implant and graft

== ENCOUNTER 2020-11-15 11:57 | Emergency (ER) | payer OTHER ==
[~2020-11-15] VITALS: Ht 170.2 cm; Wt 109.8 kg
[2020-11-15 12:43] LABS: HEMATOCRIT 35.8 % (42.0-52.0); HEMOGLOBIN 12.1 gm/dL (14.0-18.0); MCH 29.2 pg (26.0-34.0); MCHC 33.9 g/dL (28.0-37.0); MCV 86.2 fL (80.0-100.0); MPV 8.1 fl. (7.2-11.1); NUCLEATED RBCS 0 /100WBC; PLATELET COUNT* 260 thou/uL (150-400); RBC 4.15 mil/uL (4.50-6.00); RDW-CV 14.7 % (10.5-14.5); WBC 9.4 thou/uL (4.0-11.0)
[2020-11-15 12:47] LABS: CALCIUM 9.3 mg/dL (8.5-10.1)
[2020-11-15 12:52] LABS: ALBUMIN 3.5 g/dL (3.4-5.0); TOTAL BILIRUBIN 0.4 mg/dL (<0.1-1.0)
[2020-11-15 13:14] LABS: ABSOLUTE LYMPHOCYTES 1.4 thou/uL (0.8-5.3); ABSOLUTE MONOCYTES 0.4 thou/uL (0.0-1.2); ABSOLUTE NEUTROPHILS 6.6 thou/uL (1.6-8.1); ANISOCYTOSIS 1+; PLATELET ESTIMATE ADEQUATE; POIKILOCYTOSIS 1+; POLYCHROMASIA 1+
[2020-11-15] MEDS ORDERED: PREDNISONE 20 M20 MG PO (14:05)
[2020-11-15 14:24] VITALS: BP 158/81
--- NOTE | 2020-11-15 17:03 | EKG ---
[place] [address] ELECTROCARDIOGRAM REPORT Name: JOSE F WYMAN Room: [facility]#: [id number] Admission: 11/15/20 Attend Phys: Discharge: 11/15/20 Date of : 46 Date of Service: 11/15/20 1234 Report #: [id number] THIS REPORT FOR: //name// [facility] ED Test Date: 2020-11-15 Test Time: 12:34:45 Pat Name: JOSE F WYMAN Department: Room: Gender: Marine Habitat Resource Specialist: DAYLIN : 1950 Requested By: Coco Randhawa Order Number: [id number] MD: Jose F Zamarripa Measurements Intervals [place] Rate: 114 P: -6 [place]: 166 QRS: -12 QRSD: 96 T: 44 QT: 317 QTc: 437 Interpretive Statements Sinus tachycardia Low voltage, extremity leads Late transition Compared to ECG 09/26/2020 03:42:29 Sinus rhythm no longer present Atrial premature complex(es) no longer present Myocardial infarct finding no longer present Electronically Signed On 11-15-2020 17:03:46 RN NIGHT by Jose F Zamarripa [email or web address] <ELECTRONICALLY SIGNED> By: Jose F Zamarripa MD, FACC 11/15/20 1703 1234 1234 Jose F Zamarripa MD, FAC /EPI
== END 2020-11-15 14:25 | disposition home or self-care (01) ==
LOC: M.ERS 11:57
PROVIDERS: Physician Assistant
DX: J45.901 Unspecified asthma with (acute) exacerbation (principal); I10 Essential (primary) hypertension; E78.00 Pure hypercholesterolemia, unspecified; Z20.822 Contact with and (suspected) exposure to COVID-19; Z95.5 Presence of coronary angioplasty implant and graft; Z98.890 Other specified postprocedural states; Z79.899 Other long term (current) drug therapy; Z88.6 Allergy status to analgesic agent

== ENCOUNTER 2020-11-28 07:57 | Emergency (ER) | payer OTHER ==
[~2020-11-28] VITALS: Ht 170.2 cm; Wt 110.2 kg
[2020-11-28] MEDS ORDERED: PREDNISONE 20 M20 M1 PO (08:20)
[2020-11-28] MEDS ORDERED: ZPAK PO (08:20)
[2020-11-28 08:50] VITALS: BP 154/78
== END 2020-11-28 08:52 | disposition home or self-care (01) ==
LOC: M.ERS 07:57
DX: J45.901 Unspecified asthma with (acute) exacerbation (principal); I10 Essential (primary) hypertension; E78.00 Pure hypercholesterolemia, unspecified; Z95.5 Presence of coronary angioplasty implant and graft; Z98.890 Other specified postprocedural states; Z79.899 Other long term (current) drug therapy; Z88.6 Allergy status to analgesic agent

== ENCOUNTER 2020-12-16 20:41 | Emergency (ER) | payer OTHER ==
[~2020-12-16] VITALS: Ht 170.2 cm; Wt 109.8 kg
[2020-12-16] MEDS ORDERED: PREDNISONE50 MG PO (23:06)
[2020-12-16] MEDS ORDERED: TESSALON PERLE100 M1 PO (23:06)
[2020-12-16 23:09] VITALS: BP 125/65
== END 2020-12-16 23:09 | disposition home or self-care (01) ==
LOC: M.ERS 20:41
DX: R05 Cough (principal); I10 Essential (primary) hypertension; E78.00 Pure hypercholesterolemia, unspecified; J45.909 Unspecified asthma, uncomplicated; Z95.5 Presence of coronary angioplasty implant and graft; Z88.6 Allergy status to analgesic agent

== ENCOUNTER 2020-12-24 11:17 | Emergency (ER) | payer OTHER ==
[~2020-12-24] VITALS: Ht 170.2 cm; Wt 113.8 kg
[~2020-12-24 11:17] MED LIST changes: +PREDNISONE50 MG PO; +TESSALON PERLE100 M1 PO
[2020-12-24 11:20] VITALS: BP 110/68
[2020-12-24] MEDS ORDERED: PLAVIX 75 MG TA75 MG PO (11:27)
[2020-12-24] MEDS ORDERED: FISH OIL 1,0001 EAC9 PO (11:27)
[2020-12-24 11:59] LABS: HEMATOCRIT 36.6 % (42.0-52.0); HEMOGLOBIN 12.1 gm/dL (14.0-18.0); MCH 28.5 pg (26.0-34.0); MCV 86.6 fL (80.0-100.0); MPV 8.4 fl. (7.2-11.1); NUCLEATED RBCS 0 /100WBC; PLATELET COUNT* 233 thou/uL (150-400); RBC 4.23 mil/uL (4.50-6.00); RDW-CV 14.7 % (10.5-14.5); WBC 12.4 thou/uL (4.0-11.0)
[2020-12-24 12:10] LABS: APTT 23.9 Seconds (25.0-31.3); CALCIUM 8.6 mg/dL (8.5-10.1); POTASSIUM 4.3 mmol/L (3.5-5.1); PROTIME 10.7 Seconds (9.20-11.50)
[2020-12-24 12:20] LABS: ALBUMIN 3.2 g/dL (3.4-5.0); TOTAL BILIRUBIN 0.4 mg/dL (<0.1-1.0); TOTAL PROTEIN 6.2 g/dL (6.4-8.2)
[2020-12-24 12:49] LABS: ABSOLUTE EOSINOPHILS 1.4 thou/uL (0.0-0.7); ABSOLUTE MONOCYTES 0.2 thou/uL (0.0-1.2); ABSOLUTE NEUTROPHILS 7.8 thou/uL (1.6-8.1); ATYPICAL LYMPHS 1 %; PLATELET ESTIMATE ADEQUATE
[2020-12-24 14:38] VITALS: BP 117/55
[2020-12-24 18:10] VITALS: BP 126/60
--- NOTE | 2020-12-25 14:11 | EKG ---
[place] [address] ELECTROCARDIOGRAM REPORT Name: JOSE F WYMAN Room: [facility]#: [id number] Admission: 12/24/20 Attend Phys: Discharge: 12/24/20 Date of : 46 Date of Service: 12/24/20 1121 Report #: [id number] THIS REPORT FOR: //name// [facility] ED Test Date: 2020-12-24 Test Time: 11:21:02 Pat Name: JOSE F WYMAN Department: Room: [facility] Gender: M Carry Out Clerk And Shelf Stocker: DREW : 1950 Requested By: Enoc Grier Order Number: [id number] MD: Jose F Zamarripa Measurements Intervals [place] Rate: 81 P: 38 [place]: 178 QRS: -10 QRSD: 96 T: 39 QT: 352 QTc: 409 Interpretive Statements Sinus rhythm Supraventricular bigeminy Possible left atrial enlargement Borderline low voltage, extremity leads Compared to ECG 11/15/2020 12:34:45 Atrial premature complex(es) now present Sinus tachycardia no longer present Electronically Signed On 12-25-2020 14:11:29 CDT by Jsoe F Zamarripa [email or web address] <ELECTRONICALLY SIGNED> By: Jose F Zamarripa MD, FACC 12/25/20 1411 1121 1121 Jose F Zamarripa MD, FACC /EPI
== END 2020-12-24 14:40 | disposition admitted as inpatient to this hospital (09) ==
LOC: M.ERS 11:17 → M.TBA-ER 12:41 → M.ERS 12:41
PROVIDERS: Emergency Medicine Emergency Medical Services
DX: R07.89 Other chest pain (principal); Z20.822 Contact with and (suspected) exposure to COVID-19; I10 Essential (primary) hypertension; E78.00 Pure hypercholesterolemia, unspecified; J45.909 Unspecified asthma, uncomplicated; Z88.6 Allergy status to analgesic agent; Z95.5 Presence of coronary angioplasty implant and graft

== ENCOUNTER 2021-01-07 21:25 | Emergency (ER) | payer OTHER ==
[~2021-01-07] VITALS: Ht 170.2 cm; Wt 110.2 kg
[~2021-01-07 21:25] MED LIST changes: +FISH OIL 1,0001 EAC9 PO; +FLONASE 0.05%50 MCG NARES; -FLONASE 0.05%50 MCG NASAL; +PLAVIX 75 MG TA75 MG PO
[2021-01-07] MEDS ORDERED: PREDNISONE 20 M20 M1 PO (22:27)
[2021-01-07 23:16] VITALS: BP 142/75
[2021-01-08] MEDS ORDERED: CALCIUM500 M1 PO (09:14)
[2021-01-08] MEDS ORDERED: ADULT LOW DOSE81 MG PO (09:15)
[2021-01-08] MEDS ORDERED: LOPRESSOR50 MG PO (09:17)
[2021-01-08] MEDS ORDERED: ASMANEX220 MC1 INH (09:18)
[2021-01-08] MEDS ORDERED: NAPROSYN500 M1 PO (09:18)
[2021-01-08] MEDS ORDERED: BRILINTA90 MG PO (09:20)
== END 2021-01-07 23:17 | disposition home or self-care (01) ==
LOC: M.ERS 21:25
DX: J45.901 Unspecified asthma with (acute) exacerbation (principal); I10 Essential (primary) hypertension; E78.00 Pure hypercholesterolemia, unspecified; Z88.6 Allergy status to analgesic agent

== ENCOUNTER 2021-01-18 08:06 | Observation (INO) | payer OTHER ==
[2021-01-18] VITALS (8 sets, daily range): BP systolic 115–173; BP diastolic 52–79
[~2021-01-18] VITALS: Ht 170.2 cm; Wt 110.2 kg
[~2021-01-18 08:06] MED LIST changes: +ADULT LOW DOSE81 MG PO; +ASMANEX220 MC1 INH; +CALCIUM500 M1 PO; +LOPRESSOR50 MG PO; +NAPROSYN500 M1 PO
[2021-01-18 08:55] LABS: HEMATOCRIT 38.2 % (42.0-52.0); HEMOGLOBIN 12.6 gm/dL (14.0-18.0); MCH 28.2 pg (26.0-34.0); MCHC 32.9 g/dL (28.0-37.0); MCV 85.6 fL (80.0-100.0); MPV 7.9 fl. (7.2-11.1); RBC 4.46 mil/uL (4.50-6.00); RDW-CV 14.7 % (10.5-14.5); WBC 13.4 thou/uL (4.0-11.0)
[2021-01-18 09:07] LABS: APTT 23.1 Seconds (25.0-31.3); PROTIME 10.4 Seconds (9.20-11.50)
[2021-01-18] MEDS ORDERED: PLAVIX 75 MG TA75 MG PO (09:24)
[2021-01-18] MEDS ORDERED: GUAIFENESIN400 MG PO (09:25)
[2021-01-18] MEDS ORDERED: ASMANEX220 MC2 INH (09:25)
[2021-01-18] MEDS ORDERED: ATROVENT HFA14 GM INH (09:26)
[2021-01-18 09:39] LABS: ANION GAP 9 mmol/L (7-16); BUN 16 mg/dL (7-18); CHLORIDE 102 mmol/L (98-107); CO2 30 mmol/L (21-32); GLUCOSE 105 mg/dL (70-99); POTASSIUM 3.6 mmol/L (3.5-5.1); SODIUM 141 mmol/L (136-145)
[2021-01-18 09:51] LABS: ALBUMIN 3.8 g/dL (3.4-5.0); ALKALINE PHOSPHATASE 85 U/L (46-116); SGOT 13 U/L (15-37); SGPT 33 U/L (30-65); TOTAL BILIRUBIN 0.5 mg/dL (<0.1-1.0); TOTAL PROTEIN 7.1 g/dL (6.4-8.2)
[2021-01-18 11:11] LABS: CHOLESTEROL 193 mg/dL (<200); HDL CHOLESTEROL 57 mg/dL (>40); LDL CHOLESTEROL 111 mg/dL (<100); SERUM ASSESSMENT Clear; TC:HDL 3.4 Ratio (Not establshd); TRIGLYCERIDE 129 mg/dL (<150); VLDL 26 mg/dL (<40)
--- NOTE | 2021-01-18 16:40 | CARD ---
[address] [address] CARDIAC CATH REPORT Name: ALMA ROSA WYMAN Room: [address] Vickey M.R.#: [id number] Admission: 01/18/21 Attend Phys: Maycol Alexandre MD, Discharge: Date of : 46 Report #: [id number] THIS REPORT FOR: cc: FAM - No family physician/PCP FAM - No family physician/PCP Maycol Alexandre MD [facility] ~ APPROVED REPORT Study performed: 01/18/2021 09:10:59 Patient Details Patient Status: Out-Patient Room #: The patient is a 70 year-old male Event Personnel Maycol Alexandre Manager Corporate, Vibha Florez RN Salesforce Business Analyst, Tati Marie RTR Monitor, Kael Bella Scrub Procedures Performed Art Access - R femoral artery, Left Heart Cath Coronaries, Bypass Grafts LHCCORCABG, SKYLAR w/Atherectomy Single Left Main DESATH, SKYLAR Place w/wo Plasty Single DIAG , Hemostasis w/ Angioseal Indication Unstable angina Risk Factors Obesity, Hypercholesterolemia, Hypertension Previous Procedures/Diagnoses Previous CABGPrevious PCI Admission/Lab Medications/Medications given during procedure Angiomax IV 16.5 ml, Angiomax Drip IV 38.7 ml per hr, Plavix PO 600 mg Procedure Narrative The patient was brought electively to the Cardiac Catheterization Laboratory and was prepped and draped in a sterile manner. The right femoral was infiltrated with 2% Lidocaine subcutaneous anesthesia. IV conscious sedation was used throughout procedure with appropriate monitoring and was performed in the presence [place] [address] CARDIAC CATH REPORT Name: GAROALMA ROSA Noelle Room: [address] Vickey Lorenzo#: [id number] Admission: 01/18/21 Attend Phys: Maycol Alexandre MD, Discharge: Date of : 48 Report #: [id number] who was an independent trained observer other than the physician performing the procedure. A 6fr Ultimum sheath was inserted into the right femoral artery. Coronary angiography was performed using coronary diagnostic catheters. The left coronary system was accessed and visualized with a 6F JL4 catheter. The left ventricle was accessed and visualized with a 6F Pigtail catheter. Left ventricular/Aortic Valve gradient assessed via catheter pullback. Left ventriculogram was performed in SMALL projection. Pre-demployment femoral angiogram was performed . Closure device was deployed with a 6 Fr Angioseal STS. The patient tolerated the procedure well and there were no complications associated with the procedure. There was no hematoma. The saphenous vein grafts were visualized with a 6F JR4 catheter and a 6F AR1 MOD catheter. The SANCHEZ was visualized with a 5F IM catheter. Intraoperative Conscious Sedation Sedation start time: 09:36 Case end Time: 10:34 Fentanyl 50 mcg Versed 2 mg Fluoro Time: 18.4 minutes Dose: DAP [id number] cGycm2 3817 mGy Contrast Type and Amount: Omnipaque 430 ml [place] Artery Percent Stenosis 1. Widely patent SANCHEZ graft to the distal LAD 2. Widely patent saphenous vein graft to the distal right coronary artery 3. Patent saphenous vein graft to the mid circumflex with diffuse disease of the distal circumflex system Diagnostic Cath Left Main 80% distal stenosis LAD 100% mid vessel occlusion; there was 75% stenosis of the first diagonal branch Circumflex Nondominant vessel with occluded distal portion Right Coronary 100% proximal right coronary occlusion as previously defined Left Ventriculography The left ventricle is normal in size with normal contractility. The left ventricular ejection fraction is estimated to be 65%. Left ventricular wall motion abnormalities are not [place] [address] CARDIAC CATH REPORT Name: ALMA ROSA WYMAN Noelle Room: [address]#: [id number] Admission: 01/18/21 Attend Phys: Maycol Alexandre MD, Discharge: Date of : 48 Report #: [id number] mitral insufficiency. Hemodynamics The aortic pressure is 168/80 mmHg with a mean of 111 mmHg. The left ventricular pressure is 172/3 mmHg with a mean of mmHg. The left ventricular end diastolic pressure is 20 mmHg. There was no gradient across the aortic valve upon pullback. PCI Technique Lesion Anticoagulation was achieved with Angiomax. Patient was preloaded with Angiomax IV 16.5 ml. Percutaneous coronary intervention was performed on the Left Main. The lesion stenosis prior to intervention was 80% with ONOFRE 3 flow. A 6FR XB 3.0 100CM Guide Catheter was used to engage the lm ostium. A ProwaterFlex 180CM Interventional Guidewire was used to cross the lesion. BALLOON DILATION A Balloon catheter NC Trek RX 2.25 X 8 was inserted and inflated up to 22.00atm for 13seconds. Additional Inflation: 22.00atm for 8seconds. A 2.5 x 6 AngioSculpt scoring balloon was inserted and inflated up to 12 emmy for 11 seconds; 12 emmy for 15 seconds; and 14 emmy for 14 seconds. STENT DEPLOYMENT A drug-eluting stent [place] RX Stent 2.5X8mm was inserted and inflated up to 12.00atm for 4seconds. Additional Inflation: 17.00atm for 5seconds. Additional Inflation: 18.00atm for 6seconds. POST STENT DEPLOYMENT BALLOON DILATION A Balloon catheter NC Euphora 2.5 x 8 was inserted and inflated up to 17.00atm for 9seconds. Additional Inflation: 18.00atm for 8seconds. Final angiography reveals 10 % stenosis with ONOFRE 3 flow. PCI Technique Lesion 2 Percutaneous Coronary Intervention was performed on the first diagnonal branch segment. The lesion stenosis prior to intervention was 75% with ONOFRE 3 flow. Balloon Dilation A Balloon catheter NC Trek RX 2.25 X 8 was inserted and inflated up to 16atm for 15seconds. Additional Inflation: 18atm for 7seconds. [place] [address] CARDIAC CATH REPORT Name: ALMA ROSA WYMAN Room: [address] [place] Lorenzo#: [id number] Admission: 01/18/21 Attend Phys: Maycol Alexandre MD, Discharge: Date of : 46 Report #: [id number] Stent Deployment A drug-eluting stent David RX Stent 2.0X8mm was inserted and inflated up to 12.00atm for 8seconds. Additional Inflation: 17.00atm for 6seconds. Additional Inflation: 18.00atm for 4seconds. Final angiography reveals 0 % stenosis with ONOFRE 3 flow. Conclusion 1. Severe coronary artery disease characterized by the following: A 80% distal left main coronary stenosis B 100% mid LAD occlusion with 75% first diagonal stenosis C total occlusion of the distal nondominant circumflex system D previously defined 100% occlusion of the right coronary artery proximally 2. Graft study characterized by the following: A widely patent SANCHEZ graft the distal LAD B patent saphenous vein graft to the distal right coronary artery C patent saphenous vein graft to the mid circumflex with a diffusely disease distal circumflex system 3. Moderate systemic systolic hypertension with moderate elevation of left ventricular end-diastolic pressure at rest 4. Normal left-ventricular systolic function, estimate ejection fraction being 65% 5. Successful atherotomy/atherectomy with stenting of the distal left main coronary artery with 10% residual narrowing 6. Successful PTCA with deployment of a drug-eluting stent at site of 75% first diagonal stenosis with 0% residual narrowing and ONOFRE-3 flow to the distal vessel Recommendations [facility] [address] [address] CARDIAC CATH REPORT Name: ALMA ROSA WYMAN Room: [address] Vickey GlassRCuong#: [id number] Admission: 01/18/21 Attend Phys: Maycol Alexandre MD, Discharge: Date of : 46 Report #: [id number] Medications Administered Clopidogrel Diagnostic Cath Approved by: Maycol Alexandre MD Date/Time: 01/18/2021 16:37:51 <ELECTRONICALLY SIGNED> By: Maycol Alexandre MD, FACC 01/18/21 1640 1640 [id number] Alexandre MD, FACC /INF
--- NOTE | 2021-01-18 16:53 | EKG ---
[place] [address] ELECTROCARDIOGRAM REPORT Name: ALMA ROSA WYMAN Room: [address] M.R.#: [id number] Admission: 01/18/21 Attend Phys: Tim Booker Discharge: Date of : 46 Date of Service: 01/18/21922 Report #: [id number] THIS REPORT FOR: //name// [facility] Test Date: 2021-01-18 Test Time: 09:23:40 Pat Name: ALMA ROSA WYMAN Department: Room: [facility] Gender: M Ordinary Seaman: : 1950 Requested By: Mayocl Alexandre Order Number: [id number] [place] MD: Maycol Alexandre Measurements Intervals [place] Rate: 78 P: 23 MO: 173 QRS: 2 QRSD: 107 T: 54 QT: 391 QTc: 446 Interpretive Statements Sinus rhythm Supraventricular bigeminy Compared to ECG 12/24/2020 11:21:02 No significant changes Electronically Signed On 01-18-2021 16:53:31 CDT by Maycol Alexandre [email or web address] <ELECTRONICALLY SIGNED> By: Maycol Alexandre MD, FACC 01/18/21 1653 0923 0923 Maycol Alexandre MD, [facility] /EPI
--- NOTE | 2021-01-18 16:56 | EKG ---
[place] [address] ELECTROCARDIOGRAM REPORT Name: ALMA ROSA WYMAN Room: [address] M.R.#: [id number] Admission: 01/18/21 Attend Phys: Tim Booker Discharge: Date of : 46 Date of Service: 01/18/21 1312 Report #: [id number] THIS REPORT FOR: //name// [facility] Test Date: 2021-01-18 Test Time: 13:12:32 Pat Name: ALMA ROSA WYMAN Department: Room: [facility] Gender: M Lockstitch Cup Setter: : 1950 Requested By: Maycol Alexandre Order Number: [id number] Lake MD: Maycol Alexandre Measurements Intervals [place] Rate: 74 P: 37 [place]: 160 QRS: -8 QRSD: 96 T: 66 QT: 376 QTc: 418 Interpretive Statements Sinus rhythm Borderline low voltage, extremity leads Baseline wander in lead(s) III Compared to ECG 01/18/2021 09:23:40 Atrial premature complex(es) no longer present Electronically Signed On 01-18-2021 16:56:24 CDT by Maycol Alexandre [email or web address] <ELECTRONICALLY SIGNED> By: Maycol Alexandre MD, [facility] 01/18/21 1656 1312 1312 Maycol Alexandre MD, FAC /EPI
--- NOTE | 2021-01-18 17:28 | NUR ---
patient resting in chair at bedside. fluids infusing, Room air, no pain at this time. report taken from field laboratory operator nurse. dressing intact at right groin. patient up to bathroom with standby assist. Will continue to monitor.
[2021-01-19] VITALS: BP 116/84
[2021-01-19 04:00] VITALS: BP 156/60
--- NOTE | 2021-01-19 04:08 | NUR ---
PT A&OX4, VSS ON ROOM AIR - CPAP WHILE SLEEPING. IV FLUIDS INFUSING ORDERED. PT UP WITH SBA TO TOLIET. PT SR WITH PAC'S ON TELE MONITOR. NO CO PAIN THIS SHIFT. ASSESSMENTS AND HOURLY ROUNDINGS COMPLETE, WILL CONTINUE TO MONITOR.
[2021-01-19 04:24] LABS: HEMATOCRIT 34.7 % (42.0-52.0); HEMOGLOBIN 11.7 gm/dL (14.0-18.0); MCH 29.1 pg (26.0-34.0); MCHC 33.8 g/dL (28.0-37.0); MPV 8.3 fl. (7.2-11.1); RBC 4.04 mil/uL (4.50-6.00); RDW-CV 14.5 % (10.5-14.5); WBC 13.5 thou/uL (4.0-11.0)
[2021-01-19 04:41] LABS: ALBUMIN 3.1 g/dL (3.4-5.0); CALCIUM 8.7 mg/dL (8.5-10.1); CREATININE 0.9 mg/dL (0.6-1.3); POTASSIUM 4.1 mmol/L (3.5-5.1); TOTAL BILIRUBIN 0.5 mg/dL (<0.1-1.0); TOTAL PROTEIN 6.3 g/dL (6.4-8.2); TROPONIN-I LEVEL 0.13 ng/mL (<0.06)
[2021-01-19 08:00] VITALS: BP 163/40
[2021-01-19 12:51] VITALS: BP 163/40
--- NOTE | 2021-01-19 12:57 | EKG ---
[place] [address] ELECTROCARDIOGRAM REPORT Name: ALMA ROSA WYMAN Room: [address] M.R.#: [id number] Admission: 01/18/21 Attend Phys: Tim Booker Discharge: Date of : 46 Date of Service: 01/19/21 1129 Report #: [id number] THIS REPORT FOR: //name// [facility] Test Date: 2021-01-19 Test Time: 11:29:23 Pat Name: ALMA ROSA WYMAN Department: Room: [facility] Gender: M Costing Analyst: NOEL : 1950 Requested By: Maycol Alexandre Order Number: [id number] [place] MD: Gabriele Carson Measurements Intervals [place] Rate: 69 P: 32 DC: 171 QRS: -11 QRSD: 98 T: 54 QT: 374 QTc: 401 Interpretive Statements Sinus rhythm septal q waves Supraventricular bigeminy Borderline low voltage, extremity leads Compared to ECG 01/18/2021 13:12:32 Atrial premature complex(es) now present Electronically Signed On 01-19-2021 12:57:45 CDT by Gabriele Carson [email or web address] <ELECTRONICALLY SIGNED> By: Gabriele Carson MD, [facility] 01/19/21 1257 1129 1129 Gabriele Carson MD, [facility] /EPI
--- NOTE | 2021-01-19 14:03 | NUR ---
PT. AOX4, VSS, ZANE PAIN OR DISCOMFORT TO CHEST AND R GROIN CATH SITE. CALL LIGHT AND PERSONAL BELONGINGS PLACED WITHIN REACH. DC ORDERS RECEIVED, FLUIDS AND IV ACCESS DCED. DC PACKET PROVIDED TO PT, MEDS, DIET, ACTIVITY LIMITATIONS EXPLAINED AND PT. VERBALIZED UNDERSTANDING. PT. REFUSED WHEELCHAIR, LET UNIT WITH FRIEND, AMBULATED WITHOUT DIFFICULTY, IN STABLE CONDITION.
--- NOTE | 2021-01-20 12:36 | D ---
[address] [address] DISCHARGE SUMMARY Name: ALMA ROSA WYMAN Room: [address] Vickey Lorenzo#: [id number] Admission: 01/18/21 Attend Phys: Maycol Alexandre MD, Discharge: 01/19/21 Date of : 46 Report #: [id number] THIS REPORT FOR: cc: FAM - No family physician/PCP FAM - No family physician/PCP Maycol Alexandre MD [facility] ~ DOC #: [id number] Maycol Alexandre MD [facility] DATE OF DISCHARGE: 01/19/2021 FINAL DISCHARGE DIAGNOSES: 1. Unstable angina. 2. Coronary artery disease. 3. Status post remote coronary artery bypass graft. 4. Status post percutaneous coronary intervention to a protected left main and the first diagonal branch of the left anterior descending. 5. Hypertension. 6. Chronic obstructive pulmonary disease. 7. Exogenous obesity. PROCEDURES: 01/18/2021 -- left heart catheterization, left ventriculography, selective coronary arteriography, graft study, and percutaneous coronary intervention to the distal left main and first diagonal branch of the LAD. HOSPITAL COURSE: The patient is a very pleasant 70-year-old male with complex coronary artery disease, status post remote coronary artery bypass grafting. He has underlying hypertension, hypercholesterolemia, COPD, and exogenous obesity. Recently, he has noted frequent episodes of chest discomfort triggering a number of ER evaluations. There has been no evidence for acute myocardial injury, but the pattern has been a lot of increasing frequency of angina. In this context, I recommended to proceed with cardiac catheterization, which was undertaken on 01/18/2021. That study demonstrated normal LV function with an estimated ejection fraction of 60%-65%. There were total occlusion of the [place] coronaries with the exception of an 80% distal left main and 75% first diagonal with total mid LAD occlusion. The right coronary artery was totally occluded proximally. He had a patent SANCHEZ graft to the LAD, patent saphenous vein graft to the mid circumflex with diffuse distal circumflex disease and patent vein graft to the distal right coronary artery. Given this data, I elected to perform a PCI in the protected left main into a prominent diagonal with deployment of one 2.0 x 12 mm [place] drug-eluting stent in the first diagonal with 0% residual narrowing and atherotomy/atherectomy with stenting of the distal left main deploying one 12.5 x 8 mm David drug-eluting stent in the distal left main with 10% residual narrowing and [place] [address] DISCHARGE SUMMARY Name: ALMA ROSA WYMAN [address] [id number] Admission: 01/18/21 Attend Phys: Maycol Alexandre MD, Discharge: 01/19/21 Date of : 46 Report #: [id number] distal portion of the circulation supplied by that vessel. He did well post-procedurally and ambulated in the hallways without difficulty. There was inconsequential increase in a troponin. Renal function parameters and hemoglobin were stable. He walked in the hallways without difficulty and there was good hemostasis at the right femoral site of catheterization. DISCHARGE MEDICATIONS: He was discharged to home on the following medications: Omeprazole 20 mg daily, Singulair 10 mg daily, loratadine 10 mg daily, inhaled albuterol 2 puffs every 4 hours as needed for shortness of breath, atorvastatin 80 mg daily, fluticasone 1 spray daily, multivitamin with minerals 1 tablet daily, cinnamon bark 2 capsules at bedtime, metoprolol tartrate 50 mg b.i.d., Naprosyn 500 mg b.i.d., clopidogrel or Plavix 75 mg daily with a 600 mg periprocedural dose having been given, guaifenesin 400 mg b.i.d., Asmanex 220 mcg 2 puffs inhaled at bedtime, and Atrovent 2 puffs b.i.d. I will plan to see the patient in followup in 4-6 weeks in our office. Therefore, the patient is discharged home in stable condition on the aforementioned medications with followup as outlined above. Maycol Alexandre MD [facility]IS <ELECTRONICALLY SIGNED> By: Maycol Alexandre MD, [facility] 01/20/21 1236 1025 1124Maycol Alexandre MD, [facility] /nt
== END 2021-01-19 13:00 | disposition home or self-care (01) ==
LOC: M.CL 08:06 → M.TBA-CV 10:44 → M.2W 16:38
PROVIDERS: ADMIT Internal Medicine; ATTEND Internal Medicine
DX: I25.110 Atherosclerotic heart disease of native coronary artery with unstable angina pectoris (principal); Z20.822 Contact with and (suspected) exposure to COVID-19; I10 Essential (primary) hypertension; J44.9 Chronic obstructive pulmonary disease, unspecified; E66.09 Other obesity due to excess calories; Z68.38 Body mass index [BMI] 38.0-38.9, adult

== ENCOUNTER 2021-02-02 17:21 | Emergency (ER) | payer OTHER ==
[~2021-02-02] VITALS: Ht 170.2 cm; Wt 110.2 kg
[~2021-02-02 17:21] MED LIST changes: +ATROVENT HFA14 GM INH; +GUAIFENESIN400 MG PO
[2021-02-02 18:05] LABS: ABSOLUTE BASOPHILS 0.1 thou/uL (0.0-0.2); ABSOLUTE EOSINOPHILS 1.3 thou/uL (0.0-0.7); ABSOLUTE LYMPHOCYTES 1.6 thou/uL (0.8-5.3); ABSOLUTE MONOCYTES 0.6 thou/uL (0.0-1.2); BASOPHILS 0.7 %; EOSINOPHILS 17.1 %; HEMATOCRIT 34.3 % (42.0-52.0); HEMOGLOBIN 11.6 gm/dL (14.0-18.0); LYMPHOCYTES 21.1 %; MCHC 33.8 g/dL (28.0-37.0); MCV 85.8 fL (80.0-100.0); MONOCYTES 8.4 %; MPV 8.1 fl. (7.2-11.1); NUCLEATED RBCS 0 /100WBC; PLATELET COUNT* 211 thou/uL (150-400); POLYS 52.7 %; RBC 3.99 mil/uL (4.50-6.00); WBC 7.6 thou/uL (4.0-11.0)
[2021-02-02 18:20] LABS: CALCIUM 8.9 mg/dL (8.5-10.1); CREATININE 0.9 mg/dL (0.6-1.3); POTASSIUM 4.2 mmol/L (3.5-5.1)
[2021-02-02 18:30] LABS: ALBUMIN 3.7 g/dL (3.4-5.0); MAGNESIUM 1.8 mg/dL (1.8-2.4); TOTAL BILIRUBIN 0.5 mg/dL (<0.1-1.0)
[2021-02-02] MEDS ORDERED: MEDROLDOSEPACK PO (21:04)
[2021-02-02 21:10] VITALS: BP 141/85
--- NOTE | 2021-02-03 11:12 | EKG ---
[place] [address] ELECTROCARDIOGRAM REPORT Name: ALMA ROSA WYMAN Room: [facility]#: [id number] Admission: 02/02/21 Attend Phys: Discharge: 02/02/21 Date of : 46 Date of Service: 02/02/21 180 Report #: [id number] THIS REPORT FOR: //name// [facility] ED Test Date: 2021-02-02 Test Time: 18:06:06 Pat Name: ALMA ROSA WYMAN Department: Room: Gender: Stroke Coordinator: : 1950 Requested By: Enoc Grier Order Number: [id number] MD: Gabriele Carson Measurements Intervals [place] Rate: 93 P: -1 NC: 155 QRS: -11 QRSD: 99 T: 41 QT: 357 QTc: 445 Interpretive Statements Sinus rhythm poor r wave progression Borderline low voltage, extremity leads Baseline wander in lead(s) II,III,aVR,aVL,aVF Compared to ECG 01/19/2021 11:29:23 Atrial premature complex(es) no longer present Electronically Signed On 02-03-2021 11:11:50 CDT by Gabriele Carson [email or web address] <ELECTRONICALLY SIGNED> By: Gabriele Carson MD, FACC 02/03/21 1111 180 1806 Gabriele Carson MD, [facility] /EPI
== END 2021-02-02 21:10 | disposition home or self-care (01) ==
LOC: M.ERS 17:21
PROVIDERS: Emergency Medicine Emergency Medical Services
DX: J45.901 Unspecified asthma with (acute) exacerbation (principal); R91.1 Solitary pulmonary nodule; I10 Essential (primary) hypertension; E78.00 Pure hypercholesterolemia, unspecified; G47.33 Obstructive sleep apnea (adult) (pediatric); Z95.1 Presence of aortocoronary bypass graft; Z95.5 Presence of coronary angioplasty implant and graft; Z88.6 Allergy status to analgesic agent